=== PATIENT | male | born 1985 | race Caucasian/White ===

== ENCOUNTER 2017-07-19 11:52 | Emergency (ER) | payer SELFPAY ==
--- NOTE | 2017-07-19 12:24 | EDM.PDOC ---
ED HPI GENERAL MEDICAL PROBLEM - General Chief Complaint: Upper Extremity Injury/Pain Stated Complaint: RIGHT ARM NUMBNESS Time Seen by Provider: 07/19/17 12:08 Source of Information: Reports: Patient History Limitations: Reports: No Limitations - History of Present Illness INITIAL COMMENTS - FREE TEXT/NARRATIVE: Patient is a 32-year-old male presents ED complaining of intermittent aching sensation to his right forearm, wrist, hand. This been progressively getting worse over the past week. States his noted anymore worse in the morning after waking up. With working the discomfort goes away. He works in the oil field performing a physical job. Denies any recent injuries. Eyes any pain to his neck , upper arm, hand or elbow. There is no swelling or bruising present. He has not been taking any anti-inflammatories or Tylenol. He questions if he may related to carpal tunnel syndrome. He is right-handed. Has no past medical history and currently taking no medications. No surgical history. Does not smoke or use any recreational drugs. Alcohol use is minimal. - Related Data Allergies Allergy/AdvReac Type Severity Reaction Status Date / Time No Known Allergies Allergy Verified 07/19/17 11:59 Home Meds: Home Meds . [No Known Home Meds] 07/19/17 [History] Past Medical History - Past Health History Medical/Surgical History: Denies Medical/Surgical History Social & Family History - Family History Family Medical History: Noncontributory - Recreational Drug Use Recreational Drug Use: No Review of Systems - Review of Systems Review Of Systems: ROS reveals no pertinent complaints other than HPI. ED EXAM, GENERAL - Physical Exam Exam: See Below Exam Limited By: No Limitations General Appearance: Alert, WD/WN, No Apparent Distress Ears: Hearing Grossly Normal Nose: Normal Inspection Throat/Mouth: Normal Voice, No Airway Compromise Head: Atraumatic, Normocephalic Neck: Normal Inspection, Supple Respiratory/Chest: No Respiratory Distress, No Accessory Muscle Use Cardiovascular: Normal Peripheral Pulses, Regular Rate, Rhythm Peripheral Pulses: 4+: Radial (L), Radial (R) Extremities: Normal Inspection, Normal Range of Motion, Non-Tender, No Pedal Edema, Normal Capillary Refill, Other (Right wrist/hand: tinels positive. Phalen tests negative. ) Neurological: Alert, Oriented, CN II-XII Intact, Normal Cognition, No Motor/ Sensory Deficits Psychiatric: Normal Affect, Normal Mood Skin Exam: Warm, Dry, Intact, Normal Color Course - Vital Signs Last Recorded V/S: Last Vital Signs Temp 99.3 F 07/19/17 11:57 Pulse 82 07/19/17 11:57 Resp 16 07/19/17 11:57 BP 161/87 H 07/19/17 11:57 Pulse Ox 99 07/19/17 11:57 - Re-Assessments/Exams Free Text/Narrative Re-Assessment/Exam: Tinel's test was positive. Phalen test negative. Suspect patient has carpal tunnel syndrome of the right wrist/hand. Will refer patient to orthopedic surgeon for evaluation and EMG study. In the meantime have provided a wrist splint to wear at night. Refrain from any activities that cause worsening pain. Take Tylenol and ibuprofen in alternating fashion. May apply ice to affected area as needed. Patient had no additional questions or concerns discharge instructions as documented. Departure - Departure Time of Disposition: 12:23 Disposition: Home, Self-Care 01 Condition: Good Clinical Impression: Carpal tunnel syndrome of right wrist - Discharge Information Instructions: Carpal Tunnel Syndrome, [id number], Hand Exercises Referrals: Param Carroll MD [Physician] - Ivan Henning MD [Physician] - Forms: ED Department Discharge Additional Instructions: Wear the wrist splint at night when sleeping. Refrain from any activities that cause worsening pain. Take Tylenol and ibuprofen in alternating fashion for pain. Take with food and drink plenty of water. Call and make an appointment with a orthopedic surgeon to be evaluated and have EMG study. Return to the ED if you develop any new or worsening symptoms.
== END 2017-07-19 12:30 | disposition home or self-care (01) ==
LOC: JD.ED 11:52
DX: G56.01 Carpal tunnel syndrome, right upper limb (principal)
CPT/HCPCS: 99283

== ENCOUNTER 2020-07-20 10:52 | Emergency (ER) | payer OTHER ==
[2020-07-20] MEDS ORDERED: Clindamycin Phosphate in D5W 900 MG in Premix Bag 1 BAG IV ONE ×2 (11:25)
--- NOTE | 2020-07-20 11:39 | EDM.PDOC ---
ED HPI GENERAL MEDICAL PROBLEM - General Chief Complaint: ENT Problem Stated Complaint: DENTAL COMPLAINT SENT BY [facility] Time Seen by Provider: 07/20/20 11:09 Source of Information: Reports: Patient, RN Notes Reviewed History Limitations: Reports: No Limitations - History of Present Illness INITIAL COMMENTS - FREE TEXT/NARRATIVE: Patient is a 35 year old male who presents to the ER for his dental abscess. He was seen at the [facility] and had a CT performed that demonstrated moderate soft tissue swelling along the soft tissues of the L mandible and submandibular region. Few adjacent mildly prominent lymph nodes are noted, there is a small amount of fluid tracking from the left posterior student counselor space anteriorly along the medial surface of the mandible but no periapical lucency or abscess identified. Findings were most consistent with a likely phlegmonous process versus developing abscess along the left medial student counselor space extending anteriorly along the undersurface of the left mandible. Patient's not had any fevers or chills, cough or shortness of breath, nausea/vomiting/diarrhea, notes that he is not been able to eat much or drink much, due to the pain. He has been using [place] at home for pain management and that helps a little bit. Notes that he was actually supposed to have dental work on right upper tooth, on Thursday of next week. But developed this issue to his left mandible on Thursday. 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 5 - 325 mg PO Q4H PRN 07/20/20 [History] Past Medical History - Past Health History Medical/Surgical History: Denies Medical/Surgical History Social & Family History - Family History Family Medical History: No Pertinent Family History - Caffeine Use Caffeine Use: Reports: Coffee - Alcohol Use Days Per Week of Alcohol Use: 5 Number of Drinks Per Day: 2 Total Drinks Per Week: 10 - Recreational Drug Use Recreational Drug Use: No ED ROS ENT - Review of Systems Review Of Systems: Comprehensive ROS is negative, except as noted in HPI. ED EXAM, ENT - Physical Exam Exam: See Below Exam Limited By: No Limitations General Appearance: Alert, WD/WN, No Apparent Distress Mouth/Throat: Normal Lips, Normal Teeth, Other (left submandibular fullness, with tenderness along the underside of the left mandible.). No: Dental Tenderness, Uvular Deviation Head: Facial Swelling (L underside of mandible) Respiratory/Chest: No Respiratory Distress, Lungs Clear, Normal Breath Sounds, No Accessory Muscle Use, Chest Non-Tender Cardiovascular: Normal Peripheral Pulses, Regular Rate, Rhythm, No Edema Extremities: Normal Inspection, Normal Capillary Refill Neurological: Alert, Oriented, Normal Cognition, No Motor/Sensory Deficits Psychiatric: Normal Affect, Normal Mood Skin: Warm, Dry, Intact, Normal Color, No Rash Course - Vital Signs Last Recorded V/S: Last Vital Signs Temp 96.6 F L 07/20/20 11:06 Pulse 66 07/20/20 11:06 Resp 16 07/20/20 11:06 BP 143/68 H 07/20/20 11:06 Pulse Ox 98 07/20/20 11:06 - Orders/Labs/Meds Labs: Laboratory Tests 07/20/20 07/20/20 07/20/20 Range/Units 11:37 11:37 11:40 WBC 14.40 H (4.23-9.07) K/mm3 RBC 4.85 (4.63-6.08) M/mm3 Hgb 15.2 (13.7-17.5) gm/dl Hct 45.3 (40.1-51.0) % MCV 93.4 H (79.0-92.2) fl MCH 31.3 (25.7-32.2) pg MCHC 33.6 (32.2-35.5) g/dl RDW Std Deviation 42.4 (35.1-43.9) fL Plt Count 258 (163-337) K/mm3 MPV 8.7 L (9.4-12.3) fl Neut % (Auto) 75.9 H (34.0-67.9) % Lymph % (Auto) 11.0 L (21.8-53.1) % [place] % (Auto) 12.4 H (5.3-12.2) % Eos % (Auto) 0.3 L (0.8-7.0) Baso % (Auto) 0.1 (0.1-1.2) % Neut # (Auto) 10.93 H (1.78-5.38) K/mm3 Lymph # (Auto) 1.59 (1.32-3.57) K/mm3 [place] # (Auto) 1.78 H (0.30-0.82) K/mm3 Eos # (Auto) 0.04 (0.04-0.54) K/mm3 Baso # (Auto) 0.02 (0.01-0.08) K/mm3 Manual Slide Review Abnormal smear Sodium 139 (136-145) mEq/L Potassium 4.3 (3.5-5.1) mEq/L Chloride 101 (98-107) mEq/L Carbon Dioxide 28 (21-32) mEq/L Anion Gap 14.3 (5-15) BUN 9 (7-18) mg/dL Creatinine 1.0 (0.7-1.3) mg/dL Est Cr Clr Drug Dosing 105.07 mL/min Estimated GFR (MDRD) > 60 (>60) mL/min BUN/Creatinine Ratio 9.0 L (14-18) Glucose 84 (70-99) mg/dL Calcium 8.9 (8.5-10.1) mg/dL Total Bilirubin 1.4 H (0.2-1.0) mg/dL AST 23 (15-37) U/L ALT 28 (16-63) U/L Alkaline Phosphatase 62 (46-116) U/L C-Reactive Protein 5.5 H* (<1.0) mg/dL Total Protein 7.5 (6.4-8.2) g/dl Albumin 4.2 (3.4-5.0) g/dl Globulin 3.3 gm/dL Albumin/Globulin Ratio 1.3 (1-2) Influenza Type A RNA Negative (NEGATIVE) Influenza Type B RNA Negative (NEGATIVE) SARS-CoV-2 RNA (JAYSON) Negative (NEGATIVE) Meds: Medications Discontinued Medications Generic Name Dose Route Start Last Admin Trade Name Freq PRN Reason Stop Dose Admin Clindamycin Phosphate 900 mg/ 50 mls @ 100 mls/hr 07/20/20 11:25 07/20/20 11:33 Premix IV 07/20/20 11:54 100 mls/hr ONETIME ONE Administration Ceftriaxone Sodium 2 gm/ 100 mls @ 200 mls/hr 07/20/20 11:50 07/20/20 12:08 Sodium Chloride IV 07/20/20 12:19 200 mls/hr ONETIME ONE Administration Ketorolac Tromethamine 30 mg 07/20/20 12:19 07/20/20 12:40 Ketorolac 30 Mg/Ml Sdv IVPUSH 07/20/20 12:20 30 mg ONETIME ONE Administration - Re-Assessments/Exams Free Text/Narrative Re-Assessment/Exam: 07/20/20 11:40 Patient presents to the ER for the evaluation of his dental abscess, we will go ahead and start clindamycin IV, get some basic labs, and try to refer him to [place] for possible incision and drainage before the iday , I have been in contact with [facility] in [place], and Dr. Jacobsen, ENT is [employer] at this time. He recommends that the patient be given IV antibiotics for 48 hours, with close observation, and then follow-up with dentistry after antibiotics have been given time to work. I did offer the patient hospitalization at this time, but he would opt more for outpatient therapy as he states he can still drink some fluids at this time. We will put him on a clear liquid diet for the next 48 to [address] hours, [address] IV outpatient Rocephin orders, and start him on oral liquid clindamycin over the weekend. 07/20/20 13:08 Patient's laboratory evaluation has resulted, Covid screen is negative, the patient white blood cell count is elevated at 14.4, CRP elevated at 5. Patient has received both IV antibiotics, we will go ahead and discharge him home with the above plan. Departure - Departure Time of Disposition: 12:43 Disposition: Home, Self-Care 01 Condition: Good Clinical Impression: Submandibular abscess, Dental abscess - Discharge Information *PRESCRIPTION DRUG MONITORING PROGRAM REVIEWED*: No *COPY OF PRESCRIPTION DRUG MONITORING REPORT IN PATIENT RUSTY: No Prescriptions: Clindamycin Palmitate HCl [Clindamycin Pediatric] 300 mg PO TID 8 Days #500 ml Cefdinir [Omnicef 250 MG/5 ML Susp] 300 mg PO BID #60 ml Instructions: Dental Abscess, [id number] Referrals: PCP,None [Primary Care Provider] - Forms: ED Department Discharge Additional Instructions: You have been evaluated in the ED for your dental pain/abscess. You were given a dose of IV antibiotics in the ER, Rocephin and clindamycin, you will need to continue oral antibiotic usage clindamycin, tonight at around 8 PM. You will continue oral clindamycin dosing 3 times a day until gone. This medication was electronically sent to the [facility] located near [facility]. Orders have been placed for IV outpatient therapy for ongoing management, for Rocephin 1 g, every 24 hours roughly at around 12-1 PM in the afternoon. After the next 2 IV doses of Rocephin, you will need to continue oral medication as well and have also been given a prescription for Omnicef, you will need to take 1 dose twice daily until gone. You may use hot pack/ ice packs to the affected area as tolerated in 15-20 minute intervals. Recommend you stick to a clear liquid diet, fluids like Gatorade/Powerade, and some protein shakes over the next few days would be good for you to take until the pain is at his acceptable level, so you can swallow/chew normally. Please continue to take all other medications as previously prescribed by your regular care provider. Please follow-up with your dental provider, on Thursday for ongoing management, to see if they would want to take care of this newly developed issue as well, as you should be adequately covered for antibiotic purposes. Please return to the ED if your symptoms change or worsen. Sepsis Event Note (ED) - Evaluation Sepsis Screening Result: No Definite Risk - Focused Exam Vital Signs: Vital Signs Temp Pulse Resp BP Pulse Ox 07/20/20 11:06 96.6 F L 66 16 143/68 H 98
[2020-07-20] MEDS ORDERED: cefTRIAXone 2 GM in Sodium Chloride 0.9% 100 ML IV ONE (11:50)
[2020-07-20] MEDS ORDERED: Ketorolac 30 MG/ML SDV IVPUSH ONE (12:19)
[2020-07-20 12:40] LABS: CORONAVIRUS COVID-19 NAA NEGATIVE (NEGATIVE)
== END 2020-07-20 13:27 | disposition home or self-care (01) ==
LOC: JD.ED 10:52
DX: K12.2 Cellulitis and abscess of mouth (principal); K04.7 Periapical abscess without sinus; Z20.822 Contact with and (suspected) exposure to COVID-19
CPT/HCPCS: 0240U; 36415; 80053; 85025; 86140; 96365; 96367; 96375; 99283; J0696; J1885; J3490